=== PATIENT | female | born 1990 | race Caucasian/White ===

== ENCOUNTER 2021-03-24 08:25 | Observation (INO) | payer OTHER ==
[~2021-03-24] VITALS: Ht 160 cm; Wt 76.2 kg
[2021-03-24] VITALS (7 sets, daily range): BP systolic 100–111; BP diastolic 59–73
[2021-03-24 09:13] LABS: HEMATOCRIT 38.7 % (37.0-47.0); MEAN CELL VOLUME 88.8 fl (81.0-99.0); MEAN CORPUSCULAR HGB 29.1 pg (27.0-31.0); MEAN CORPUSCULAR HGB CONC 32.8 g/dl (33.0-37.0); MEAN PLATELET VOLUME 9.5 fl (9.6-12.3); PLATELET COUNT AUTOMATED 595 10*3/uL (130-400); RED BLOOD COUNT 4.36 10*6/uL (4.10-5.10); WHITE BLOOD COUNT 10.5 10*3/uL (4.8-10.8)
[2021-03-24 09:32] LABS: ALBUMIN 2.5 gm/dl (3.1-4.5); ALKALINE PHOSPHATASE 53 U/L (45-117); BUN 7 mg/dl (7-24); CHLORIDE 106 mmol/L (98-107); CREATININE 0.57 mg/dL (0.55-1.02); SGOT/AST 29 IU/L (3-35); SGPT/ALT 47 U/L (12-78); SODIUM 135 mmol/L (136-145); TOTAL PROTEIN 7.2 gm/dL (6.4-8.2)
[2021-03-24 09:34] LABS: TROPONIN I < 0.015 ng/ml (<0.045)
[2021-03-24 10:01] LABS: ACANTHOCYTES MODERATE; PLATELET SUFFICIENCY HIGH (NORMAL); POLYCHROMASIA SLIGHT; TOTAL CELLS COUNTED 100 #CELLS
[2021-03-25] VITALS: BP 116/73
[2021-03-25 06:56] LABS: BASO % 0.2 % (0.0-1.0); HEMATOCRIT 39.4 % (37.0-47.0); LYMPH # 1.4 10*3/uL (1.3-4.4); MEAN CELL VOLUME 91.4 fl (81.0-99.0); MEAN CORPUSCULAR HGB 29.5 pg (27.0-31.0); MEAN CORPUSCULAR HGB CONC 32.2 g/dl (33.0-37.0); MEAN PLATELET VOLUME 9.5 fl (9.6-12.3); MONO # 0.8 10*3/uL (0.1-1.0); MONO % 5.9 % (3.0-9.0); NEUT # 10.3 10*3/uL (2.3-7.9); NEUT % 80.6 % (47.0-73.0); PLATELET COUNT AUTOMATED 539 10*3/uL (130-400); RED BLOOD COUNT 4.31 10*6/uL (4.10-5.10); RED CELL DISTRI WIDTH 13.4 % (0-14.5); WHITE BLOOD COUNT 12.8 10*3/uL (4.8-10.8)
[2021-03-25 07:12] LABS: CHLORIDE 110 mmol/L (98-107); POTASSIUM 4.3 mmol/L (3.5-5.1); SODIUM 137 mmol/L (136-145)
[2021-03-25 07:32] LABS: ALBUMIN 2.4 gm/dl (3.1-4.5); ALKALINE PHOSPHATASE 51 U/L (45-117); BUN 9 mg/dl (7-24); CHOLESTEROL 143 mg/dL (<200); CREATININE 0.53 mg/dL (0.55-1.02); FREE T4 1.25 ng/dl (0.76-1.46); LDL CHOLESTEROL 81 mg/dL (9-159); SGOT/AST 37 IU/L (3-35); SGPT/ALT 49 U/L (12-78); THYROID STIM HORMONE (HS) 0.382 uIU/ml (0.358-4.75); TOTAL PROTEIN 6.7 gm/dL (6.4-8.2); TRIGLYCERIDES 113 mg/dl (<150)
[2021-03-25 07:59] LABS: VITAMIN D, 25-HYDROXY 30.2 ng/mL (30-100)
[2021-03-25 08:00] VITALS: BP 107/73
[2021-03-25 12:00] VITALS: BP 119/75
[2021-03-25 16:00] VITALS: BP 92/58
[2021-03-25 20:00] VITALS: BP 98/60
[2021-03-26] VITALS: BP 103/64
[2021-03-26 06:14] LABS: MEAN CELL VOLUME 90.9 fl (81.0-99.0); MEAN CORPUSCULAR HGB 29.2 pg (27.0-31.0); MEAN CORPUSCULAR HGB CONC 32.1 g/dl (33.0-37.0); MEAN PLATELET VOLUME 9.3 fl (9.6-12.3); PLATELET COUNT AUTOMATED 544 10*3/uL (130-400); RED BLOOD COUNT 4.18 10*6/uL (4.10-5.10); RED CELL DISTRI WIDTH 13.5 % (0-14.5); WHITE BLOOD COUNT 13.6 10*3/uL (4.8-10.8)
[2021-03-26 06:24] LABS: BUN 8 mg/dl (7-24); CHLORIDE 112 mmol/L (98-107); CREATININE 0.52 mg/dL (0.55-1.02); POTASSIUM 3.9 mmol/L (3.5-5.1); SODIUM 137 mmol/L (136-145)
[2021-03-26 06:59] LABS: BURR CELLS FEW; PLATELET SUFFICIENCY HIGH (NORMAL); POLYCHROMASIA SLIGHT; TOTAL CELLS COUNTED 100 #CELLS
[2021-03-26 08:00] VITALS: BP 103/63
[2021-03-26 12:00] VITALS: BP 144/122; BP 98/56
[2021-03-26 16:00] VITALS: BP 108/61
[2021-03-26 20:00] VITALS: BP 106/67
[2021-03-27] VITALS: BP 100/61
[2021-03-27 04:00] VITALS: BP 104/62
[2021-03-27 06:07] LABS: BUN 8 mg/dl (7-24); CHLORIDE 106 mmol/L (98-107); CREATININE 0.59 mg/dL (0.55-1.02); POTASSIUM 3.8 mmol/L (3.5-5.1); SODIUM 135 mmol/L (136-145)
[2021-03-27 06:16] LABS: BASO % 0.2 % (0.0-1.0); HEMATOCRIT 39.9 % (37.0-47.0); LYMPH # 2.1 10*3/uL (1.3-4.4); MEAN CELL VOLUME 88.9 fl (81.0-99.0); MEAN CORPUSCULAR HGB 29.6 pg (27.0-31.0); MEAN CORPUSCULAR HGB CONC 33.3 g/dl (33.0-37.0); MEAN PLATELET VOLUME 9.2 fl (9.6-12.3); MONO # 1.1 10*3/uL (0.1-1.0); MONO % 7.8 % (3.0-9.0); NEUT # 10.7 10*3/uL (2.3-7.9); NEUT % 75.4 % (47.0-73.0); PLATELET COUNT AUTOMATED 559 10*3/uL (130-400); RED BLOOD COUNT 4.49 10*6/uL (4.10-5.10); RED CELL DISTRI WIDTH 13.8 % (0-14.5); WHITE BLOOD COUNT 14.2 10*3/uL (4.8-10.8)
[2021-03-27 08:00] VITALS: BP 98/63
[2021-03-27 12:00] VITALS: BP 105/61
[2021-03-27 16:00] VITALS: BP 98/59
[2021-03-27 17:13] LABS: ABG BASE EXCESS -1.7 mmol/L (-2.0-2.0); ARTERIAL BLOOD GAS PH 7.433 (7.35-7.45); ARTERIAL BLOOD GAS PO2 81.8 (80-90)
[2021-03-27 20:00] VITALS: BP 100/65
[2021-03-28] VITALS: BP 103/66
[2021-03-28 05:33] LABS: ALBUMIN 2.6 gm/dl (3.1-4.5); ALKALINE PHOSPHATASE 57 U/L (45-117); BUN 8 mg/dl (7-24); CHLORIDE 104 mmol/L (98-107); CREATININE 0.55 mg/dL (0.55-1.02); LDH 171 U/L (84-246); POTASSIUM 4.2 mmol/L (3.5-5.1); SGOT/AST 14 IU/L (3-35); SGPT/ALT 35 U/L (12-78); SODIUM 137 mmol/L (136-145); TOTAL PROTEIN 6.7 gm/dL (6.4-8.2)
[2021-03-28 06:34] LABS: MEAN CELL VOLUME 90.7 fl (81.0-99.0); MEAN CORPUSCULAR HGB 29.1 pg (27.0-31.0); MEAN CORPUSCULAR HGB CONC 32.1 g/dl (33.0-37.0); MEAN PLATELET VOLUME 9.6 fl (9.6-12.3); PLATELET COUNT AUTOMATED 557 10*3/uL (130-400); RED BLOOD COUNT 4.74 10*6/uL (4.10-5.10); RED CELL DISTRI WIDTH 13.8 % (0-14.5); WHITE BLOOD COUNT 15.4 10*3/uL (4.8-10.8)
[2021-03-28 07:15] LABS: PLATELET SUFFICIENCY NORMAL (NORMAL); TOTAL CELLS COUNTED 100 #CELLS
[2021-03-28 08:00] VITALS: BP 100/65
[2021-03-28 12:00] VITALS: BP 102/57
[2021-03-28 16:00] VITALS: BP 107/62
[2021-03-28 20:00] VITALS: BP 99/72
[2021-03-29 05:56] LABS: ALBUMIN 2.8 gm/dl (3.1-4.5); ALKALINE PHOSPHATASE 61 U/L (45-117); BUN 11 mg/dl (7-24); CHLORIDE 103 mmol/L (98-107); CREATININE 0.53 mg/dL (0.55-1.02); LDH 164 U/L (84-246); POTASSIUM 4.3 mmol/L (3.5-5.1); SGOT/AST 12 IU/L (3-35); SGPT/ALT 31 U/L (12-78); SODIUM 136 mmol/L (136-145)
[2021-03-29 06:16] LABS: HEMATOCRIT 43.9 % (37.0-47.0); MEAN CELL VOLUME 90.7 fl (81.0-99.0); MEAN CORPUSCULAR HGB 29.1 pg (27.0-31.0); MEAN CORPUSCULAR HGB CONC 32.1 g/dl (33.0-37.0); MEAN PLATELET VOLUME 9.8 fl (9.6-12.3); PLATELET COUNT AUTOMATED 558 10*3/uL (130-400); RED BLOOD COUNT 4.84 10*6/uL (4.10-5.10); RED CELL DISTRI WIDTH 14.1 % (0-14.5); WHITE BLOOD COUNT 16.4 10*3/uL (4.8-10.8)
[2021-03-29 06:49] LABS: PLATELET SUFFICIENCY HIGH (NORMAL); TOTAL CELLS COUNTED 100 #CELLS
[2021-03-29 08:00] VITALS: BP 100/58
[2021-03-29 12:00] VITALS: BP 96/55
[2021-03-29 14:00] VITALS: BP 96/55
[2021-03-29 16:00] VITALS: BP 104/67
[2021-03-29 20:00] VITALS: BP 107/70
[2021-03-30] VITALS: BP 118/61
[2021-03-30 06:07] LABS: ALBUMIN 2.8 gm/dl (3.1-4.5); ALKALINE PHOSPHATASE 61 U/L (45-117); BUN 11 mg/dl (7-24); CHLORIDE 105 mmol/L (98-107); CREATININE 0.58 mg/dL (0.55-1.02); LDH 172 U/L (84-246); SGOT/AST 14 IU/L (3-35); SGPT/ALT 27 U/L (12-78); SODIUM 132 mmol/L (136-145); TOTAL PROTEIN 6.9 gm/dL (6.4-8.2)
[2021-03-30 06:18] LABS: HEMATOCRIT 43.1 % (37.0-47.0); MEAN CELL VOLUME 89.4 fl (81.0-99.0); MEAN CORPUSCULAR HGB CONC 32.5 g/dl (33.0-37.0); MEAN PLATELET VOLUME 9.8 fl (9.6-12.3); PLATELET COUNT AUTOMATED 519 10*3/uL (130-400); RED BLOOD COUNT 4.82 10*6/uL (4.10-5.10); RED CELL DISTRI WIDTH 13.9 % (0-14.5); WHITE BLOOD COUNT 16.6 10*3/uL (4.8-10.8)
[2021-03-30 07:33] LABS: PLATELET SUFFICIENCY HIGH (NORMAL); TOTAL CELLS COUNTED 100 #CELLS
[2021-03-30 08:00] VITALS: BP 103/75
[2021-03-30 16:00] VITALS: BP 101/64
[2021-03-30 20:00] VITALS: BP 109/61
[2021-03-31] VITALS: BP 97/67
[2021-03-31 08:00] VITALS: BP 100/68
[2021-03-31] MEDS ORDERED: ZOFRAN4 MG PO (09:51)
[2021-03-31] MEDS ORDERED: MUCUS RELIEF600 MG PO (09:51)
[2021-03-31] MEDS ORDERED: DECADRON4 MG PO (09:52)
[2021-03-31] MEDS ORDERED: OMNICEF300 MG PO (11:08)
[2021-03-31] MEDS ORDERED: ZITHROMAX500 MG PO (11:08)
[2021-03-31 12:00] VITALS: BP 108/65
== END 2021-03-31 14:51 | disposition home or self-care (01) ==
LOC: ED 08:25 → EDHOLD 10:36 → 4E 10:36 → EDHOLD 11:37 → 4E 12:27
PROVIDERS: Emergency Medicine; Family Medicine; Internal Medicine; Internal Medicine Critical Care Medicine; ADMIT Student in an Organized Health Care Education/Training Program; ATTEND Student in an Organized Health Care Education/Training Program
DX: A41.9 Sepsis, unspecified organism (principal); J84.9 Interstitial pulmonary disease, unspecified; J96.01 Acute respiratory failure with hypoxia; E43 Unspecified severe protein-calorie malnutrition; E87.1 Hypo-osmolality and hyponatremia; R05 Cough; R00.0 Tachycardia, unspecified; D47.3 Essential (hemorrhagic) thrombocythemia; E83.41 Hypermagnesemia; E66.9 Obesity, unspecified; D72.829 Elevated white blood cell count, unspecified; Z79.899 Other long term (current) drug therapy

== ENCOUNTER → 2021-04-08 | Outpatient (CLI) | payer OTHER ==
[~2021-04-08] MED LIST: DECADRON4 MG PO; MUCUS RELIEF600 MG PO; OMNICEF300 MG PO; ZITHROMAX500 MG PO; ZOFRAN4 MG PO
== END | disposition home or self-care (01) ==
LOC: RAD 09:50 → RESCLI 09:50
PROVIDERS: ATTEND Internal Medicine
DX: J43.9 Emphysema, unspecified (principal); Z86.16 Personal history of COVID-19

== ENCOUNTER → 2021-04-22 | Outpatient (CLI) | payer OTHER ==
[2021-04-22 12:29] LABS: BASO % 0.4 % (0.0-1.0); EOS # 0.1 10*3/uL (0.0-0.4); EOS % 1.8 % (1.0-4.0); HEMATOCRIT 39.2 % (37.0-47.0); LYMPH # 1.4 10*3/uL (1.3-4.4); LYMPH % 17.5 % (27.0-41.0); MEAN CELL VOLUME 92.9 fl (81.0-99.0); MEAN CORPUSCULAR HGB 29.6 pg (27.0-31.0); MEAN CORPUSCULAR HGB CONC 31.9 g/dl (33.0-37.0); MEAN PLATELET VOLUME 10.6 fl (9.6-12.3); MONO # 0.5 10*3/uL (0.1-1.0); NEUT # 5.6 10*3/uL (2.3-7.9); NEUT % 72.3 % (47.0-73.0); PLATELET COUNT AUTOMATED 292 10*3/uL (130-400); RED BLOOD COUNT 4.22 10*6/uL (4.10-5.10); WHITE BLOOD COUNT 7.7 10*3/uL (4.8-10.8)
[2021-04-22 13:00] LABS: ALBUMIN 3.3 gm/dl (3.1-4.5); ALKALINE PHOSPHATASE 89 U/L (45-117); BUN 9 mg/dl (7-24); CHLORIDE 106 mmol/L (98-107); CREATININE 0.79 mg/dL (0.55-1.02); POTASSIUM 3.6 mmol/L (3.5-5.1); SGOT/AST 20 IU/L (3-35); SGPT/ALT 34 U/L (12-78); SODIUM 140 mmol/L (136-145); TOTAL PROTEIN 7.3 gm/dL (6.4-8.2)
== END | disposition home or self-care (01) ==
LOC: RESCLI 00:41
PROVIDERS: Student in an Organized Health Care Education/Training Program; ATTEND Internal Medicine
DX: J18.9 Pneumonia, unspecified organism (principal); J84.89 Other specified interstitial pulmonary diseases; U07.1 COVID-19; B94.8 Sequelae of other specified infectious and parasitic diseases; R06.09 Other forms of dyspnea; J12.82 Pneumonia due to coronavirus disease 2019; Z79.899 Other long term (current) drug therapy